=== PATIENT | female | born 1945 | race African-American/Black ===

== ENCOUNTER 2023-04-21 22:40 | Inpatient (IN) | payer MEDICARE, BC ==
[~2023-04-21] VITALS: Ht 167.6 cm; Wt 95.9 kg
[~2023-04-21 22:40] MED LIST: AMLO10TA80 PO; APIX5TAB PO; ATOR-2 PO; COR3 PO; DOCU-150 PO; FLUT16SP15 BOTHNSTRLS; FOLI-43 PO; FURO10VI3 PO; HYDR100T31 PO; LISI40TA13 PO; METF-873 MT; POTA-204 PO
[2023-04-21 22:41] VITALS: O2SAT 98
[2023-04-21 23:55] LABS: BASOPHILS % 1.4 % (0.0-2.0); DIFFERENTIAL COMMENT 0; PLATELET 170 x1000/uL (130-400)
[2023-04-21 23:57] LABS: EOSINOPHILS % 2.2 % (0.0-5.0); HEMATOCRIT. 35.8 % (36.0-48.0); HEMOGLOBIN. 11.4 g/dL (12.0-16.0); LYMPHOCYTES % 20.3 % (20.0-50.0); MEAN CORPUSCULAR HEMOGLOBIN 25.5 pg (28.0-32.0); MEAN CORPUSCULAR HGB CONC 31.9 g/dL (31.0-37.0); MEAN PLATELET VOLUME 10.4 fl (7.4-10.4); NEUTROPHILS % 65.1 % (40.0-76.0); RED BLOOD CELL COUNT 4.47 mill/uL (4.2-5.4); RED CELL DISTRIBUTION WIDTH 18.7 % (11.6-14.6); WHITE BLOOD COUNT 3.7 x1000/uL (4.5-11.0)
[2023-04-22 00:02] LABS: INR 1.2; PARTIAL THROMBOPLASTIN TIME 30.3 sec (23.4-31.0)
[2023-04-22 00:07] LABS: ALANINE AMINOTRANSFERASE 7 IU/L (10-49); ALBUMIN 4.4 g/dL (3.2-4.8); ASPARTATE AMINOTRANSFERASE 20 IU/L (<34); CALCIUM 9.8 mg/dL (8.7-10.4); CARBON DIOXIDE 28 mEq/L (21-32); CHLORIDE 104 mEq/L (98-107); GLUCOSE 121 mg/dL (70-105); PROTEIN TOTAL 8.3 g/dL (6.0-8.3); SODIUM 138 mEq/L (136-145); UREA NITROGEN BLOOD 12 mg/dL (9-23)
[2023-04-22 01:47] LABS: TROPONIN I HIGH SENSITIVITY 21 ng/L (3.0-34)
[2023-04-22] MEDS: ASPIRIN 81MG TABLET PO ONE (02:34)
[2023-04-22] MEDS: FUROSEMIDE 40MG/4ML VIAL IV ONE (02:34)
[2023-04-22 05:00] VITALS: BP 150/80; PULSE 67; RESP 20; TEMP 98.5
[2023-04-22] MEDS ORDERED: CLONIDINE 0.1MG TABLET PO PRN (05:00)
[2023-04-22] MEDS ORDERED: GUAIFENESIN 200MG/10ML SUGAR FREE UDC PO PRN (05:00)
[2023-04-22] MEDS ORDERED: IPRATROPIUM/ALBUTEROL 0.5-3(2.5)MG/3ML NEB HHN PRN (05:00)
[2023-04-22] MEDS ORDERED: ONDANSETRON HCL 4MG/2ML INJ IV PRN (05:00)
[2023-04-22] MEDS ORDERED: ACETAMINOPHEN 325MG TABLET PO PRN (05:00)
[2023-04-22] MEDS ORDERED: DEXTROSE 50% WATER 50ML SYRINGE IV PRN (05:15)
[2023-04-22] MEDS: BLOOD SUGAR DIAGNOSTIC STRIP TEST SCH (06:37)
[2023-04-22] MEDS: INSULIN LISPRO 100 UNITS/ML SUBCUT SCH (06:37)
[2023-04-22 08:00] VITALS: BP_SYST 132; PULSE 60; RESP 13; TEMP 97.8
[2023-04-22] MEDS: AMLODIPINE 10MG TABLET PO SCH (09:00)
[2023-04-22] MEDS: ACETAMINOPHEN 325MG TABLET PO PRN (09:02)
[2023-04-22] MEDS: FOLIC ACID 1MG TABLET PO SCH (09:02)
[2023-04-22] MEDS: LISINOPRIL 40MG TABLET PO SCH (09:03)
[2023-04-22] MEDS: FLUTICASONE PROPIONATE 50MCG/SPRAY BOTTLE BOTHNSTRLS SCH (09:03)
[2023-04-22] MEDS: CARVEDILOL 3.125 MG TABLET PO SCH (09:03)
[2023-04-22 10:57] LABS: HEMATOCRIT 35.6 % (36.0-48.0); MEAN CORPUSCULAR HEMOGLOBIN 25.1 pg (28.0-32.0); MEAN CORPUSCULAR VOLUME 80.9 fL (81.0-99.0); PLATELET 140 x1000/uL (130-400); RED CELL DISTRIBUTION WIDTH 19.2 % (11.6-14.6)
[2023-04-22 12:00] VITALS: BP 144/71; PULSE 51; RESP 18; TEMP 97.1
[2023-04-22 15:26] LABS: CALCIUM 9.2 mg/dL (8.7-10.4); CARBON DIOXIDE 22 mEq/L (21-32); CHLORIDE 106 mEq/L (98-107); CHOLESTEROL 117 mg/dL (<200); CREATINE KINASE 51 IU/L (34-145); CREATININE 1.1 mg/dL (0.6-1.0); GLUCOSE 115 mg/dL (70-105); HDL CHOLESTEROL 56 mg/dL (>65); IRON 44 ug/dL (50-170); LDL CHOLESTEROL 33 mg/dL (5-100); POTASSIUM 3.9 mEq/L (3.5-5.1); SODIUM 141 mEq/L (136-145); THYROID STIMULATING HORMONE 3.67 uIU/mL (0.55-4.78); TOTAL IRON BINDING CAPACITY 257 ug/dl (250-425); TRIGLYCERIDE 59 mg/dL (0-150); TROPONIN I HIGH SENSITIVITY 19 ng/L (3.0-34); UREA NITROGEN BLOOD 14 mg/dL (9-23)
[2023-04-22 16:00] VITALS: BP 154/76; PULSE 57; RESP 15; TEMP 97.3
[2023-04-22 16:48] LABS: CREATINE KINASE 50 IU/L (34-145); TROPONIN I HIGH SENSITIVITY 17 ng/L (3.0-34)
[2023-04-22 18:49] LABS: FERRITIN 34 ng/mL (10-291)
[2023-04-22 19:06] LABS: FOLIC ACID (FOLATE) SERUM > 48.00 ng/mL (>5.38)
[2023-04-22 19:26] LABS: HEPATITIS B SURFACE ANTIGEN NEGATIVE (Negative); HEPATITIS C AB NON REACTIVE (Neg) (Negative)
[2023-04-22 20:00] VITALS: BP 147/67; PULSE 60; RESP 18; TEMP 98.2
[2023-04-22] MEDS: ENOXAPARIN 30MG/0.3ML SYR SUBCUT SCH (21:00)
[2023-04-22] MEDS: ATORVASTATIN CALCIUM 40MG TABLET PO SCH (21:40)
[2023-04-23] VITALS: BP 130/70; PULSE 60; RESP 18; TEMP 98.1
[2023-04-23 04:00] VITALS: BP 141/58; PULSE 59; RESP 18; TEMP 97.8
[2023-04-23 07:51] LABS: HEMATOCRIT. 33.3 % (36.0-48.0); HEMOGLOBIN. 10.5 g/dL (12.0-16.0); MEAN CORPUSCULAR HGB CONC 31.6 g/dL (31.0-37.0); MEAN CORPUSCULAR VOLUME 79.1 fL (81.0-99.0); MEAN PLATELET VOLUME 10.8 fl (7.4-10.4); PLATELET 158 x1000/uL (130-400); RED BLOOD CELL COUNT 4.21 mill/uL (4.2-5.4); RED CELL DISTRIBUTION WIDTH 18.7 % (11.6-14.6)
[2023-04-23 08:00] VITALS: BP 145/79; PULSE 60; RESP 15; TEMP 97.9
[2023-04-23 08:00] LABS: ALANINE AMINOTRANSFERASE < 7 IU/L (10-49); ALBUMIN 3.9 g/dL (3.2-4.8); ASPARTATE AMINOTRANSFERASE 18 IU/L (<34); BILIRUBIN TOTAL 0.7 mg/dL (0.1-1.0); CALCIUM 9.3 mg/dL (8.7-10.4); CARBON DIOXIDE 28 mEq/L (21-32); CHLORIDE 103 mEq/L (98-107); GLUCOSE 89 mg/dL (70-105); PHOSPHORUS 3.2 mg/dL (2.5-4.9); POTASSIUM 3.6 mEq/L (3.5-5.1); PROTEIN TOTAL 7.4 g/dL (6.0-8.3); SODIUM 138 mEq/L (136-145); UREA NITROGEN BLOOD 11 mg/dL (9-23)
[2023-04-23 08:01] LABS: DIFFERENTIAL COMMENT 1
[2023-04-23 12:00] VITALS: BP 150/66; PULSE 56; RESP 19; TEMP 97.9
[2023-04-23] MEDS: MAGNESIUM 2 G PREMIX 50 ML IV NR (13:15)
[2023-04-23 16:00] VITALS: BP 131/58; PULSE 66; RESP 17; TEMP 97.5
[2023-04-23] MEDS: APIXABAN 5 MG TABLET PO SCH (17:02)
[2023-04-23 20:00] VITALS: BP 120/54; PULSE 66; RESP 19; TEMP 97.5
[2023-04-23 21:02] LABS: ANISOCYTOSIS 1+; MICROCYTOSIS 1+; PLATELET ESTIMATE NORMAL
[2023-04-23 21:03] LABS: OVALOCYTES 1+
[2023-04-24] VITALS: BP 135/87; PULSE 58; RESP 19; TEMP 98.6
[2023-04-24 04:00] VITALS: BP 123/65; PULSE 62; RESP 18; TEMP 98.7
[2023-04-24 08:00] VITALS: BP 134/74; PULSE 56; RESP 17; TEMP 98.7
[2023-04-24] MEDS: DOCUSATE SODIUM 100MG CAPSULE PO PRN (09:05)
[2023-04-24 09:38] LABS: HEMATOCRIT 33.1 % (36.0-48.0); HEMOGLOBIN 10.4 g/dL (12.0-16.0)
[2023-04-24 12:00] VITALS: BP 114/62; PULSE 58; RESP 18; TEMP 97.5
[2023-04-24 16:00] VITALS: BP 141/74; PULSE 62; RESP 18; TEMP 97.7
[2023-04-24 20:00] VITALS: BP 144/71; PULSE 56; RESP 20; TEMP 97.4
[2023-04-29] MEDS ORDERED: FURO80TA3 PO (13:53)
== END 2023-04-24 22:30 | DRG 605 ==
LOC: ER 22:40 → 7EST 04-22 03:25 → EDBEDREQ 04-22 03:26
PROVIDERS: ADMIT Internal Medicine; ATTEND Internal Medicine
DX: S00.03XA Contusion of scalp, initial encounter (principal); R47.01 Aphasia; I69.354 Hemiplegia and hemiparesis following cerebral infarction affecting left non-dominant side; I50.22 Chronic systolic (congestive) heart failure; R13.10 Dysphagia, unspecified; K74.60 Unspecified cirrhosis of liver; E66.01 Morbid (severe) obesity due to excess calories; D50.9 Iron deficiency anemia, unspecified; E78.5 Hyperlipidemia, unspecified; I11.0 Hypertensive heart disease with heart failure; I48.91 Unspecified atrial fibrillation; E11.9 Type 2 diabetes mellitus without complications; G43.909 Migraine, unspecified, not intractable, without status migrainosus; R26.9 Unspecified abnormalities of gait and mobility; R47.1 Dysarthria and anarthria; Z68.32 Body mass index [BMI] 32.0-32.9, adult; Z79.01 Long term (current) use of anticoagulants; W01.0XXA Fall on same level from slipping, tripping and stumbling without subsequent striking against object, initial encounter; Y93.89 Activity, other specified; Y92.002 Bathroom of unspecified non-institutional (private) residence as the place of occurrence of the external cause; Y99.8 Other external cause status; Z79.4 Long term (current) use of insulin; F11.90 Opioid use, unspecified, uncomplicated
CPT/HCPCS: 36415; 70551; 71045; 80048; 80053; 80061; 82040; 82550; 82728; 82746; 82962; 83036; 83540; 83550; 83605; 83735; 83880; 84100; 84145; 84443; 84484; 85014; 85018; 85025; 85027; 85379; 86705; 86850; 86900; 87340; 92523; 93005; 93880; 93970; 97110; 97112; 97116; 97162; 97166; 97530; 99285; J1650; J1940; J3475

== ENCOUNTER 2024-08-23 15:06 | Emergency (ER) | payer MEDICARE, BC ==
[~2024-08-23] VITALS: Ht 162.6 cm; Wt 82.0 kg
[~2024-08-23 15:06] MED LIST changes: -DOCU-150 PO; +DOCU-422 PO; +ERGO1250 PO; -FURO10VI3 PO; -HYDR100T31 PO; +METF-1149 MT; -METF-873 MT; -POTA-204 PO
[2024-08-23 15:09] VITALS: O2SAT 100
[2024-08-23] MEDS ORDERED: KETOROLAC 30MG/ML VIAL IV STA (15:54)
[2024-08-23 16:39] LABS: BASOPHILS % 1.0 % (0.0-2.0); EOSINOPHILS % 5.5 % (0.0-5.0); HEMATOCRIT. 45.6 % (36.0-48.0); HEMOGLOBIN. 14.4 g/dL (12.0-16.0); LYMPHOCYTES % 34.3 % (20.0-50.0); MEAN PLATELET VOLUME 10.2 fl (7.4-10.4); MONOCYTES % 11.0 % (2.0-8.0); NEUTROPHILS % 48.2 % (40.0-76.0); PLATELET 120 x1000/uL (130-400); RED BLOOD CELL COUNT 5.52 mill/uL (4.2-5.4); RED CELL DISTRIBUTION WIDTH 18.6 % (11.6-14.6)
[2024-08-23 16:54] LABS: CREATININE 1.2 mg/dL (0.6-1.0)
[2024-08-23 16:55] LABS: TROPONIN I HIGH SENSITIVITY 14 ng/L (3.0-34); UREA NITROGEN BLOOD 30 mg/dL (9-23)
[2024-08-23 16:56] LABS: ASPARTATE AMINOTRANSFERASE 23 IU/L (<34)
[2024-08-23 16:57] LABS: BILIRUBIN DIRECT 0.4 mg/dL (<=3.0); BILIRUBIN TOTAL 0.9 mg/dL (0.1-1.0); PROTEIN TOTAL 8.3 g/dL (6.0-8.3)
[2024-08-23 17:00] LABS: INR 1.1
[2024-08-23] MEDS: KETOROLAC 15MG/ML VIAL IV SCH (19:59)
[2024-08-24 00:30] VITALS: BP 160/68; PULSE 55; RESP 16; TEMP 37; O2SAT 98
== END 2024-08-24 00:51 | disposition home or self-care (01) ==
LOC: ER 15:06
DX: M25.552 Pain in left hip (principal); M79.18 Myalgia, other site; M17.12 Unilateral primary osteoarthritis, left knee; Z79.01 Long term (current) use of anticoagulants; Z79.84 Long term (current) use of oral hypoglycemic drugs; Z79.899 Other long term (current) drug therapy; W01.0XXA Fall on same level from slipping, tripping and stumbling without subsequent striking against object, initial encounter; Y93.89 Activity, other specified; Y92.89 Other specified places as the place of occurrence of the external cause; Y99.8 Other external cause status
CPT/HCPCS: 99285; 70450; 96374; 71045; 80076; 80048; 85025; 85610; 84484; 36415; 73562; 74176; J1885